=== PATIENT | male | born 1965 | race Caucasian/White ===

== ENCOUNTER 2025-06-03 05:05 | Emergency (ER) | payer OTHER, SELFPAY ==
[2025-06-03 05:07] VITALS: BP 170/96
--- NOTE | 2025-06-03 06:28 | ED.GENMED ---
History of Present Illness
General
Chief Complaint: Musculo-Skeletal Complaint
Time Seen by Provider: 06/03/25 06:06
History of Present Illness
History of Present Illness:
Patient is a 60-year-old male presenting to the emergency department 2 days of right sided neck pain. Patient states that 2 days ago he woke up with a sore right side of his neck. This felt similar to when this happened to him on his right
shoulder. The pain is throbbing and constant. It has been difficult to sleep secondary to it. No numbness tingling. No weakness. No fevers chills. No vision changes. No concern for skin infection. No traumatic events. He did take Aleve with
some relief. He states the last time this happened he was given Flexeril which did improved the symptoms
Phy Exam
Physical Exam
Physical Exam:
GENERAL: in no acute distress
HEENT: normocephalic, extraocular movements intact, moist oral mucosa
NECK: normal inspection, right sided tenderness to palpation, no erythema edema or rash
RESPIRATORY: no respiratory distress, clear to auscultation bilaterally
CARDIOVASCULAR: regular rate and rhythm
ABDOMEN/: soft, non-distended, non-tender to palpation, no rebound or guarding
EXTREMITIES: non-tender, no edema/swelling
NEUROLOGIC: alert and oriented x 3, cranial nerves II-XII intact, right upper extremity strength 5/5, left upper extremity strength 5/5, right lower extremity strength 5/5, left lower extremity strength 5/5, normal sensation to light touch, normal
[id number] and [id number], gait not tested formally
SKIN: warm
Course
Orders/Labs/Results
Orders:
Orders
06/03/25 06:27
Cyclobenzaprine HCl [Flexeril] 10 mg PO NOW STA
Ketorolac [Toradol] 15 mg IM NOW STA
06/03/25 06:28
Lidocaine [Lidocaine 4% Patch] 1 patch TOPICAL ONCE ONE
Apply Lidocaine patch(s) to:: right neck
06/03/25 08:02
Oxycodone/Acetaminophen [Percocet 5/325] 1 tablet PO NOW STA
Vital Signs
Initial and Last Documented VS:
Initial Vital Signs
Temp Pulse Resp BP Pulse Ox
98 F 68 20 170/96 100
06/03/25 05:07 06/03/25 05:07 06/03/25 05:07 06/03/25 05:07 06/03/25 05:07
Last Documented Vital Signs
Temp Pulse Resp BP Pulse Ox
98 F 68 20 170/96 100
06/03/25 05:07 06/03/25 05:07 06/03/25 05:07 06/03/25 05:07 06/03/25 06:30
MDM/Problems Addressed
Differential Diagnosis Includes:
Patient is a 60-year-old male presented to the emergency for 2 days of right-sided neck pain. On arrival vitals are notable for hypertension and exam does show reproducible right-sided paracervical tenderness. Likely musculoskeletal pain. History
and exam not consistent with [employer] etiology or spinal cord pathology. History and exam not consistent with fracture. After shared decision making we will pain control with Toradol Flexeril and lidocaine patch. At this time no indications for imaging
*Pulse Oximetry
SaO2: 100
Oxygen Mode of Delivery: Room air
Patient hypoxic: no
*Critical Care Note
Total Time (30-74mins, 75-104mins- exclusive of procedures): Not Applicable
Update Note
Update Note:
On reevaluation pain has slightly improved though still 8/ 10. Will give Percocet.
On reevaluation pain much improved. Will discharge at this time
ED Attending Note
-
Portions of this chart may have been created with voice recognition software.� Occasional wrong word or��sound alike� substitutions may have occurred due to the inherent limitations of voice recognition software.
Discharge Plan
Departure
Patient Disposition: Home (Routine Discharge)
Date of Disposition: 06/03/25
Time of Disposition: 08:42
Patient with high blood pressure during this ER visit?: Yes
Discharge Problem:
Neck pain on right side
Instructions: Neck pain - ED (DC), Neck exercises
Prescriptions:
New
cyclobenzaprine 5 mg tablet
5 mg PO BID PRN (Reason: pain) Qty: 14 0RF
Referrals:
Jose Olivier MD [Family Provider]
Activity Restrictions/Additional Instructions:
Thank You for choosing [facility].
It was a pleasure meeting you and taking part in your care.
You were seen in the Emergency Department today for neck pain
We would like for you to follow up with your primary care physician for further evaluation. If you experience fever, worsening of your symptoms, or develop any other new or concerning symptoms, please return to the Emergency Department immediately.
Please see the attached sheet for additional information.
We discussed pain medications:
You may also take Ibuprofen (also known as Motrin or Advil). If taking with Tylenol, alternate and take between dosing.
You may take 400-800mg of Ibuprofen per dose, which should be taken every 6-8 hours.
Do not take more than 3200mg (3.2 grams) of Ibuprofen per day.
You may also benefit from using a Lidocaine Patch (also known as 'Salon Pas'), which is an over the counter pain patch.
Place it just over the site of pain, avoiding areas of skin damage, as per instructions on the patch.
You may use flexeril. This medication can cause constipation and drowsiness. Do not drive or make important decisions while taking it.
Please see your primary care doctor soon to be reevaluated and to make sure that you are improving. We have included information about establishing care with a doctor if you do not have one.
We talked about your evaluation, diagnosis, and treatment in the Emergency Department today. You must see your primary doctor for recheck and followup care in order to evaluate your progress or any changes. Have your doctor recheck the test
results/information from the ED visit. As discussed, RETURN to the ED if you develop worsening/changing symptoms or have no improvement in symptoms after the treatments provided.
Interventions
Interventions:
*Risk Screen - Suicide Last Done: 06/03/25 05:07
*General Assessment Last Done: 06/03/25 05:17
*Neglect/Abuse Screening Last Done: 06/03/25 05:07
*ED COVID-19 Vaccine History Last Done: 06/03/25 05:17
*ED Influenza Vaccine History Last Done: 06/03/25 05:17
[facility] Fall Risk Assessment Tool Last Done: 06/03/25 05:17
ED-Musculoskeletal Assessment Last Done: 06/03/25 05:18
Discharge Date and Time
Print Language: [place] CITIZ[place]
[2025-06-03] MEDS: TORADOL 15 MG IM (06:55)
[2025-06-03] MEDS: FLEXERIL 10 MG PO (07:06)
[2025-06-03] MEDS: LIDOCAINE 4% PATCH 1 PATCH TOPICAL (07:06)
[2025-06-03] MEDS: PERCOCET 5/325 1 TABLET PO (08:24)
[2025-06-03 09:06] VITALS: BP 155/86
== END 2025-06-03 09:07 | disposition home or self-care (01) ==
LOC: EMR 05:05
PROVIDERS: EMERGENCY PHYSICIAN Student in an Organized Health Care Education/Training Program; FAMILY PHYSICIAN Internal Medicine
DX: M54.2 Cervicalgia (principal); R03.0 Elevated blood-pressure reading, without diagnosis of hypertension
CPT/HCPCS: 99284; 96372